=== PATIENT | female | born 1975 | race African-American/Black ===

== ENCOUNTER 2022-12-05 09:47 | Inpatient (IN) | payer OTHER ==
[2022-12-05] VITALS (10 sets, daily range): BP systolic 84–113; BP diastolic 47–74; PULSE 84–97; RESP 16–20; TEMP 98.3–98.5; O2SAT 96–100
[~2022-12-05] VITALS: Ht 165.1 cm; Wt 81.0 kg
[2022-12-05 10:51] LABS: Basophils # (auto) 0 10 ^3/uL (0-0.2); Basophils % (auto) 0.5 % (0.0-2.0); Eosinophils # (auto) 0 10 ^3/uL (0-0.8); Eosinophils % (auto) 0.9 % (0.0-7.0); Hematocrit 13.4 % (36.0-46.0); Lymphocytes # (auto) 2.2 10 ^3/uL (0.4-5.4); Lymphocytes % (auto) 50.6 % (10.0-50.0); Mean Corpuscular Hemoglobin 20.5 pg (28.0-32.0); Mean Corpuscular Hgb Conc. 30.4 g/dL (32.0-36.0); Mean Corpuscular Volume 67.5 fL (80.0-100.0); Monocytes # (auto) 0.4 10 ^3/uL (0-1.3); Monocytes % (auto) 10.4 % (0.0-12.0); Neutrophils # (auto) 1.6 10 ^3/uL (1.6-8.6); Neutrophils % (auto) 37.6 % (37.0-80.0); Nucleated Red Blood Cells % 0.4 %; Red Blood Cells 1.98 10^6/uL (4.0-5.20); Red Cell Distribution Width 19.5 % (11.8-14.3); White Blood Cell 4.3 10^3/uL (4.4-10.8)
[2022-12-05 10:56] LABS: Hemoglobin 4.1 g/dL (12.2-16.2)
[2022-12-05 11:07] LABS: Albumin 3.3 g/dL (3.4-5.0); Calcium 8.4 mg/dL (8.5-10.1); Potassium 3.3 mmol/L (3.5-5.1)
[2022-12-05 11:19] LABS: BUN/Creatinine Ratio 16.9 (10.0-20.0); Bilirubin, Total 0.3 mg/dL (0.2-1.0); Total Protein 7.1 g/dL (6.4-8.2)
[2022-12-05 11:26] LABS: INR 1.14 (0.9-1.15); Partial Thromboplastin Time 26.7 SEC (24.5-34.5); Prothrombin Time 11.9 sec (9.3-11.8)
[2022-12-05] MEDS ORDERED: NITROGLYCERIN 0.4 MG SL TAB SL PRN (12:45)
[2022-12-05] MEDS ORDERED: DOCUSATE SOD 100 MG CAP PO PRN (12:45)
[2022-12-05] MEDS ORDERED: HYDROcodone-ACET 5/325MG TAB PO PRN (12:45)
[2022-12-05] MEDS ORDERED: ACETAMINOPHEN 500 MG TAB PO PRN (12:45)
[2022-12-05 13:16] LABS: % Iron Saturation 2.6 % (15-50)
[2022-12-05 14:52] LABS: Folate (Folic Acid) 16.95 ng/mL (5.38-24)
[2022-12-06] VITALS (8 sets, daily range): BP systolic 89–99; BP diastolic 54–58; PULSE 68–89; RESP 16–20; TEMP 97.9–98.5; O2SAT 98–100
[2022-12-06] MEDS: MORPHINE SULFATE INJ 2 MG/ml SYRG IV PRN ×2 (01:27→08:33)
[2022-12-06] MEDS: ONDANSETRON HCL 4 MG/2 ML VIAL IV PRN ×2 (01:28→08:33)
[2022-12-06 01:46] LABS: Hematocrit 21.7 % (36.0-46.0)
[2022-12-06 01:54] LABS: Hemoglobin 6.9 g/dL (12.2-16.2)
[2022-12-06] MEDS ORDERED: LORazepam 2MG/ML-1ML VIAL IV PRN (02:00)
[2022-12-06] MEDS ORDERED: SPIR25TA8 PO (02:55)
[2022-12-06] MEDS ORDERED: ATOR40TA52 PO (02:55)
[2022-12-06] MEDS ORDERED: APIX5TAB PO (02:55)
[2022-12-06] MEDS ORDERED: FURO1TAB33 PO (02:55)
[2022-12-06] MEDS ORDERED: LOSA25TA15 PO (02:55)
[2022-12-06 06:36] LABS: Basophils # (auto) 0 10 ^3/uL (0-0.2); Monocytes # (auto) 0.5 10 ^3/uL (0-1.3); Red Cell Distribution Width 21.1 % (11.8-14.3)
[2022-12-06 06:38] LABS: Basophils % (auto) 0.7 % (0.0-2.0); Eosinophils # (auto) 0.1 10 ^3/uL (0-0.8); Eosinophils % (auto) 1.4 % (0.0-7.0); Hematocrit 23.4 % (36.0-46.0); Hemoglobin 7.5 g/dL (12.2-16.2); Lymphocytes % (auto) 37.5 % (10.0-50.0); Mean Corpuscular Hemoglobin 24.5 pg (28.0-32.0); Mean Corpuscular Hgb Conc. 32.2 g/dL (32.0-36.0); Mean Corpuscular Volume 75.9 fL (80.0-100.0); Monocytes % (auto) 8.7 % (0.0-12.0); Neutrophils # (auto) 2.8 10 ^3/uL (1.6-8.6); Neutrophils % (auto) 51.7 % (37.0-80.0); Nucleated Red Blood Cells % 0.3 %; Red Blood Cells 3.08 10^6/uL (4.0-5.20); White Blood Cell 5.4 10^3/uL (4.4-10.8)
[2022-12-06 13:25] LABS: Urine Bacteria NONE SEEN /hpf (None Seen); Urine Blood Negative /uL (Negative); Urine Clarity Clear (Clear); Urine Color Yellow (Yellow); Urine Protein, UAD TRACE (Negative); Urine Specific Gravity 1.019 (1.001-1.035); Urine Urobilinogen Normal (Negative); Urine WBC 1 /hpf (0 - 5)
[2022-12-06 13:57] LABS: Alcohol, Urine < 3.0 mg/dL (0-10); Amphetamine Screen, Urine NEGATIVE (NEGATIVE); Barbiturate Scree,Urine NEGATIVE (NEGATIVE); Benzodiazephine Screen, Urine NEGATIVE (NEGATIVE); Cannabinoid Screen, Urine NEGATIVE (NEGATIVE); Cocaine Screen, Urine NEGATIVE (NEGATIVE); Opiate Scree,Urine NEGATIVE (NEGATIVE); Phencyclidine Screen, Urine NEGATIVE (NEGATIVE)
[2022-12-06 14:16] LABS: Basophils # (auto) 0 10 ^3/uL (0-0.2); Eosinophils # (auto) 0.1 10 ^3/uL (0-0.8); Hematocrit 26.9 % (36.0-46.0); Lymphocytes # (auto) 1.9 10 ^3/uL (0.4-5.4)
[2022-12-06 14:18] LABS: Calcium 7.4 mg/dL (8.5-10.1); Potassium 3.6 mmol/L (3.5-5.1)
[2022-12-06 14:18] LABS: Basophils % (auto) 0.2 % (0.0-2.0); Eosinophils % (auto) 2.2 % (0.0-7.0); Hemoglobin 8.4 g/dL (12.2-16.2); Lymphocytes % (auto) 39.5 % (10.0-50.0); Mean Corpuscular Hemoglobin 24.4 pg (28.0-32.0); Mean Corpuscular Hgb Conc. 31.2 g/dL (32.0-36.0); Mean Corpuscular Volume 78.2 fL (80.0-100.0); Monocytes # (auto) 0.4 10 ^3/uL (0-1.3); Monocytes % (auto) 8.3 % (0.0-12.0); Neutrophils # (auto) 2.4 10 ^3/uL (1.6-8.6); Neutrophils % (auto) 49.8 % (37.0-80.0); Nucleated Red Blood Cells % 0.3 %; Red Blood Cells 3.44 10^6/uL (4.0-5.20); White Blood Cell 4.9 10^3/uL (4.4-10.8)
[2022-12-06 14:21] LABS: BUN/Creatinine Ratio 13.9 (10.0-20.0)
[2022-12-06 14:23] LABS: Red Cell Distribution Width 20.6 % (11.8-14.3)
[2022-12-06 19:45] LABS: Follicle Stimulating Hormone 8.08 IU/L (SEE BELOW)
[2022-12-07] VITALS (7 sets, daily range): BP systolic 99–103; BP diastolic 61–71; PULSE 61–80; RESP 16–20; TEMP 98–98.3; O2SAT 98–100
[2022-12-08 05:00] VITALS: BP 110/51; PULSE 63; RESP 19; TEMP 98.1; O2SAT 99
[2022-12-08] MEDS: MORPHINE SULFATE INJ 2 MG/ml SYRG IV PRN ×3 (06:13→13:27)
[2022-12-08 08:00] VITALS: PULSE 70; RESP 16; O2SAT 98
[2022-12-08 08:53] VITALS: BP 106/65; PULSE 62; RESP 16; TEMP 98.4; O2SAT 99
[2022-12-08 13:00] VITALS: BP 102/58; PULSE 59; RESP 16; TEMP 98.1; O2SAT 100
[2022-12-08 13:27] LABS: Basophils # (auto) 0 10 ^3/uL (0-0.2); Eosinophils # (auto) 0.1 10 ^3/uL (0-0.8); Monocytes # (auto) 0.4 10 ^3/uL (0-1.3); Nucleated Red Blood Cells % 0.1 %; White Blood Cell 5.5 10^3/uL (4.4-10.8)
[2022-12-08 13:29] LABS: Basophils % (auto) 0.7 % (0.0-2.0); Eosinophils % (auto) 1.3 % (0.0-7.0); Hematocrit 28.8 % (36.0-46.0); Lymphocytes # (auto) 1.9 10 ^3/uL (0.4-5.4); Lymphocytes % (auto) 34.2 % (10.0-50.0); Mean Corpuscular Hemoglobin 24.5 pg (28.0-32.0); Mean Corpuscular Hgb Conc. 31.3 g/dL (32.0-36.0); Mean Corpuscular Volume 78.2 fL (80.0-100.0); Monocytes % (auto) 7.8 % (0.0-12.0); Neutrophils # (auto) 3.1 10 ^3/uL (1.6-8.6); Red Blood Cells 3.69 10^6/uL (4.0-5.20)
[2022-12-08 14:16] LABS: BUN/Creatinine Ratio 13.3 (10.0-20.0); Calcium 8.5 mg/dL (8.5-10.1)
[2022-12-08 14:18] LABS: Bilirubin, Total 0.4 mg/dL (0.2-1.0); Total Protein 6.5 g/dL (6.4-8.2)
[2022-12-08 17:18] VITALS: BP 96/57; PULSE 73; RESP 16; TEMP 98; O2SAT 100
== END 2022-12-08 19:00 | disposition home or self-care (01) | DRG 532 ==
LOC: ER 09:47 → EDBD 09:47 → TELE 12:39 → TELE-EAST 12-06 17:33
PROVIDERS: ADMIT Nurse Practitioner Acute Care; ATTEND Internal Medicine Geriatric Medicine
PROC: 30233N1 Transfusion of Nonautologous Red Blood Cells into Peripheral Vein, Percutaneous Approach (ICD-10-PCS; principal; 2022-12-05)
DX: N92.0 Excessive and frequent menstruation with regular cycle (principal); E44.1 Mild protein-calorie malnutrition; I11.0 Hypertensive heart disease with heart failure; D62 Acute posthemorrhagic anemia; I50.9 Heart failure, unspecified; I69.351 Hemiplegia and hemiparesis following cerebral infarction affecting right dominant side; E66.9 Obesity, unspecified; D72.819 Decreased white blood cell count, unspecified; I25.10 Atherosclerotic heart disease of native coronary artery without angina pectoris; E78.5 Hyperlipidemia, unspecified; I25.2 Old myocardial infarction; Z79.01 Long term (current) use of anticoagulants; Z79.82 Long term (current) use of aspirin; Z68.29 Body mass index [BMI] 29.0-29.9, adult
CPT/HCPCS: 36415; 36430; 71045; 76856; 80048; 80053; 80061; 80307; 81001; 82607; 82670; 82746; 83001; 83002; 83036; 83540; 83550; 83880; 84443; 84484; 85014; 85018; 85025; 85610; 85730; 86850; 86900; 86901; 86920; 93005; 93306; 97110; 97116; 97163; 97530; 99291; G0378; J2405